=== PATIENT | male | born 1995 | race Caucasian/White ===

== ENCOUNTER 2022-06-12 21:33 | Emergency (ER) | payer OTHER, SELFPAY ==
[2022-06-12 21:36] VITALS: BP 119/81; PULSE 78; RESP 16; TEMP 36.8; O2SAT 98; BMI 21.7
--- NOTE | 2022-06-12 21:38 | ECG_ITS ---
[facility] Test Date: 2022-06-12 Pat Name: Julio Rodriguez Department: Room: Gender: Male Interventional Cardiologist: : 1995 Requested By: Nerissa Hammonds Order Number: [id number] Nikki MD: Laura Conner M.D. Measurements Intervals [place] Rate: 60 P: 0 OK: 157 QRS: 76 QRSD: 104 T: 62 QT: 372 QTc: 373 Interpretive Statements SINUS RHYTHM No previous ECG available for comparison Electronically Signed On 06-13-2022 15:38:51 CDT by Laura Conner M.D. [email or web address]
--- NOTE | 2022-06-12 21:39 | W.ED.SYNCOPE ---
HPI - Syncope General: Chief Complaint: Syncope Stated Complaint: SEIZURE Time Seen by Provider: 06/12/22 21:38 Source: patient and EMS Mode of arrival: EMS Limitations: no limitations History of Present Illness: 27-year-old male who states that he is at work tonight he states he was reaching for a roll and it rolled and bit his left thumbnail back. He states he had immediate pain and then he had passed out. People at scene was concerned he had a seizure but it sounds more like he had a syncopal episode he states that he was out for roughly 10 seconds woke up was completely with that he states he said he hit his head but denies any headache denies any nausea or vomiting this happened roughly 45 minutes ago. He has some slight thumb pain his nail is still intact. He states he feels back to baseline currently. Associated symptoms: Deny abdominal pain, fever(s), headache(s) or nausea Review of Systems Const: Denies: fever(s), chills, body aches or change in appetite Eyes: Denies: blurry vision or eye discomfort ENMT: Denies: throat pain or dental pain Card: Reports: syncope Resp: Denies: dyspnea GI: Denies: abdominal pain, nausea, vomiting or diarrhea : Denies: dysuria Musc: Denies: neck pain or back pain Skin/Breast: Denies: rash Neuro: Denies: headache(s) Psych: Denies: depression Hector/Lymph: Denies: easy bruising All/Imm: Denies: urticaria PFSH ED PFSH: Medical History (Updated 06/12/22 @ 22:15 by Nerissa Hammonds MD) No pertinent past medical history Social History (Updated 06/12/22 @ 21:41 by Nerissa Hammonds MD) Substance/Drug Use: never Physical Exam Const: COMMON NORMALS: no acute distress, patient oriented x3 and healthy appearing HENMT: COMMON NORMALS: normocephalic and atraumatic HEAD & SCALP: normocephalic and atraumatic Eye: COMMON NORMALS: Equal, round and reactive pupils present and EOMs intact bilaterally PUPIL: Yes Equal, round and reactive pupils present Neck/C-Spine: COMMON NORMALS: full ROM and supple Chest: COMMONS NORMALS: normal inspection of the chest and normal palpation of entire chest wall Resp: COMMON NORMALS: normal respiratory effort, No retractions, No use of accessory muscles and clear to auscultation bilaterally AUSCULTATION: clear to auscultation bilaterally Cardio: COMMON NORMALS: regular rate, regular rhythm and No murmurs present (Cardio) RATE: regular rate RHYTHM: regular rhythm GI: COMMON NORMALS: Normal to inspection, nondistended, normoactive bowel sounds present, Soft to palpation, non-tender and no masses PALPATION: Yes Soft to palpation Extremity: COMMON NORMALS: normal to inspection and full ROM NARRATIVE EXTREMITY EXAM: Some tenderness along left distal thumbnail no obvious deformity Neuro: COMMON NORMALS: patient oriented x3, moves all extremities and no focal motor deficits Psych: COMMON NORMALS: mental status grossly normal, Normal thought process present and cooperative THOUGHT PROCESS: Normal thought process present Skin: COMMON NORMALS: no rashes or lesions noted and no wounds GENERAL SKIN EXAM: no rashes or lesions noted Course Vital Signs: Vital signs: Vital Signs Temperature 98.2 F 06/12/22 21:36 Pulse Rate 78 06/12/22 21:36 Respiratory Rate 16 06/12/22 21:36 Blood Pressure 119/81 06/12/22 21:36 Pulse Oximetry 98 06/12/22 21:36 Oxygen Delivery Me thod 06/12/22 21:36 MDM - Syncope Medical Decision Making Patient presents here with a likely syncopal event likely had a vagal response to pain on the thumbnail injury he has no signs of bony injury does not require an x-ray he has no headache he had no seizure do not believe he requires a head CT his EKG is normal he is at his baseline he is stable for discharge he is to follow-up PCP and return if worsening. 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
[2022-06-12 22:31] VITALS: BP 131/93; PULSE 63; RESP 16; O2SAT 99
== END 2022-06-12 22:36 | disposition home or self-care (01) ==
PROVIDERS: Emergency Provider Emergency Medicine
DX: R55 Syncope and collapse (principal); S67.02XA Crushing injury of left thumb, initial encounter; W31.82XA Contact with other commercial machinery, initial encounter; Y99.0 Civilian activity done for income or pay
CPT/HCPCS: 93005; 99283